=== PATIENT | female | born 1965 | race Caucasian/White ===

== ENCOUNTER 2019-02-15 10:50 | Emergency (ER) | payer MEDICAID ==
[~2019-02-15] VITALS: Ht 172.7 cm; Wt 93.2 kg
[2019-02-15 10:53] VITALS: Ht 172.7 cm; Wt 93.2 kg
[2019-02-15] MEDS ORDERED: VOLTAREN75 MG PO (10:54)
[2019-02-15 11:18] LABS: BASOPHILS 0.5 % (0-2); EOSINOPHILS 1.6 % (0-7); HEMATOCRIT 39.1 % (36.0-48.0); IMMATURE GRANULOCYTES 0.2 % (0-5); LYMPHOCYTES 23.6 % (15-50); MCH 30.9 pg (26.0-34.0); MCHC 33.2 g/dL (31.0-37.0); MCV 92.9 fL (80.0-100.0); MEAN PLATELET VOLUME 9.7 fL (7.4-10.4); MONOCYTES 3.7 % (2-11); NEUTROPHILS 70.4 % (40-80); PLATELET COUNT 196 10x3/uL (130-400); RBC 4.21 10x6/uL (4.00-5.40); WBC 6.2 10x3/uL (4.8-10.8)
[2019-02-15 11:28] LABS: ANION GAP 11.5 mmol/L (8-16); BILIRUBIN - TOTAL 0.46 mg/dL (0.2-1.3); CALCIUM 9.3 mg/dL (8.5-10.1); CARBON DIOXIDE 28.1 mmol/L (21.0-32.0); CREATININE - SERUM 0.9 mg/dL (0.6-1.3); POTASSIUM - SERUM 3.6 mmol/L (3.5-5.1)
[2019-02-15] MEDS ORDERED: NAPROSYN500 MG PO (12:15)
[2019-02-15] MEDS ORDERED: STERAPRED DS 1010 MG PO (12:15)
[2019-02-15 12:36] VITALS: BP 133/75
== END 2019-02-15 12:31 | disposition home or self-care (01) ==
LOC: D.ER 10:50
PROVIDERS: Family Medicine
DX: M54.32 Sciatica, left side (principal)